=== PATIENT | female | born 1945 | race Caucasian/White ===

== ENCOUNTER → 2019-10-18 | Outpatient (CLI) | payer OTHER ==
--- NOTE | 2019-10-18 15:50 | 2DMMODE ---
[place] [address] 2 D/M-MODE ECHOCARDIOGRAM Name: MILTON BRAY Room: [facility]#: [id number] Admission: 10/18/19 Attend Phys: Scott Walls, Discharge: Date of : 43 Date of Service: 10/18/19 1550 Report #: [id number] THIS REPORT FOR: cc: Omero Dickinson Vincent R. DO Blick,Keith Reyes MD [facility] ~ APPROVED REPORT Study performed: 10/18/2019 14:22:33 EXAM: Comprehensive 2D, Doppler, and color-flow Echocardiogram Patient Location: Out-Patient BSA: 1.59 HR: 63 bpm BP: 140/70 mmHg Other Information Study Quality: Good Indications Visual disturbance 2D Dimensions IVSd: 8.69 (7-11mm) LVOT Diam: 18.30 (18-24mm) LVDd: 39.83 mm PWd: 9.05 (7-11mm) Ascending Ao: 33.08 (22-36mm) LVDs: 25.38 (25-40mm) Aortic Root: 29.06 mm Volumes Left Atrial Volume (Systole) LA ESV Index: 16.20 mL/m2 Aortic Valve AoV Peak Jordon.: 1.41 m/s AO Peak Gr.: 7.97 mmHg LVOT Max P.85 mmHg AO Mean Gr.: 3.90 mmHg LVOT Mean P.92 mmHg LVOT Max V: 0.68 m/s AO V2 VTI: 30.47 cm LVOT Mean V: 0.44 m/s RERE (VTI): 1.67 cm2 LVOT V1 VTI: 19.30 cm AI [place]: 1.93 m/s2 AI PHT: 584.33 [place] [address] 2 D/M-MODE ECHOCARDIOGRAM Name: MILTON BRAY Room: [facility]#: [id number] Admission: 10/18/19 Attend Phys: Scott Walls, Discharge: Date of : 43 Date of Service: 10/18/19 1550 Report #: [id number] Mitral Valve E/A Ratio: 1.40 MV Decel. Time: 174.04 ms MV E Max Jordon.: 0.90 m/s MV PHT: 50.47 ms MVA (PHT): 4.36 cm2 TDI E/Lateral E': 8.18 E/Medial E': 9.00 Medial E' Jordon.: 0.10 m/s Lateral E' Jordon.: 0.11 m/s Pulmonary Valve PV Peak Jordon.: 1.01 m/s PV Peak Gr.: 4.12 mmHg Tricuspid Valve RAP Estimate: 5.00 mmHg TR Peak Gr.: 24.87 mmHg RVSP: 29.87 mmHg PA Pressure: 29.87 mmHg Left Ventricle The left ventricle is normal size. There is normal LV segmental wall motion. There is normal left ventricular wall thickness. Left ventricular systolic function is normal. The left ventricular ejection fraction is within the normal range. LVEF is 55-60%. The left ventricular diastolic function is normal. Right Ventricle The right ventricle is normal size. The right ventricular systolic function is normal. Atria The left atrium size is normal. The right atrium size is normal. Aortic Valve The Aortic valve is sclerotic. Mild aortic regurgitation. There is no aortic valvular stenosis. Mitral Valve The mitral valve is normal in structure. Mild mitral regurgitation. No evidence of mitral valve stenosis. Tricuspid Valve The tricuspid valve is normal in structure. Mild tricuspid regurgitation. estimated pa pressure 35 [place] [address] 2 D/M-MODE ECHOCARDIOGRAM Name: MILTON BRAY Room: [facility]#: [id number] Admission: 10/18/19 Attend Phys: Scott Walls, Discharge: Date of : 43 Date of Service: 10/18/19 1550 Report #: [id number] Pulmonic Valve The pulmonary valve is normal in structure. Mild pulmonic regurgitation. Great Vessels The aortic root is normal in size. IVC is normal in size and collapses >50% with inspiration. Pericardium There is no pericardial effusion. <Conclusion> LVEF is 55-60%. The Aortic valve is sclerotic. Mild aortic regurgitation. Mild mitral regurgitation. Mild tricuspid regurgitation. estimated pa pressure 35 mm Hg <ELECTRONICALLY SIGNED> By: Keith Lee MD, FACC 10/18/19 1550 1550 1550 Keith Lee MD, FACC /INF
== END ==
LOC: M.ULTRA 13:06
PROVIDERS: ATTEND Internal Medicine Cardiovascular Disease
DX: I65.23 Occlusion and stenosis of bilateral carotid arteries (principal); I08.8 Other rheumatic multiple valve diseases